=== PATIENT | male | born 1955 | race Caucasian/White ===

== ENCOUNTER 2018-06-20 08:11 | Outpatient (CLI) | payer MEDICAID ==
[2018-06-20 11:06] LABS: ALBUMIN 4.4 g/dL (3.2-5.5); ALBUMIN/GLOBULIN RATIO 1.6 (1.0-2.2); ALKALINE PHOSPHATASE 60 IU/L (42-121); ALT ALANINE AMINOTRANSFERASE 39 IU/L (10-60); AST ASPARTATE AMINOTRANSFERASE 33 IU/L (10-42); BILIRUBIN,TOTAL 0.6 mg/dL (0.2-1.0); BUN - BLOOD UREA NITROGEN 19 mg/dL (6-20); CALCIUM 9.1 mg/dL (8.5-10.3); CARBON DIOXIDE - CO2 28 mmol/L (21-32); CHLORIDE 104 mmol/L (101-111); CHOL/HDL RATIO 4.7 (<5.0); CHOLESTEROL 224 mg/dL; CREATININE 0.9 mg/dL (0.6-1.2); GFR - MDRD 85 (>89); GLUCOSE 97 mg/dL (70-100); HDL CHOLESTEROL 48 mg/dL; LDL CHOLESTEROL,CALCULATED 164 mg/dL; LDL/HDL RATIO 3.4 (<3.6); SODIUM 139 mmol/L (135-145); TOTAL PROTEIN 7.2 g/dL (6.7-8.2); VLDL CHOLESTEROL 12 mg/dL
== END 2018-06-20 08:12 | disposition home or self-care (01) ==
LOC: LAB.F 08:11
PROVIDERS: ATTEND Nurse Practitioner Family
DX: I10 Essential (primary) hypertension (principal); E78.5 Hyperlipidemia, unspecified
CPT/HCPCS: 36415; 80053; 80061; 83721

== ENCOUNTER 2019-04-02 22:32 | Emergency (ER) | payer MEDICAID ==
[2019-04-02] MEDS ORDERED: SODIUM CHLORIDE 0.9% 1,000 ML IV ONE (22:50)
[2019-04-02] MEDS ORDERED: ASPIRIN CHEW 81 MG TABLET PO STA (22:52)
[2019-04-02 22:57] LABS: BASOPHILS # (AUTO) 0.1 10^3/uL (0.0-0.1); BASOPHILS % (AUTO) 0.8 %; EOSINOPHILS # (AUTO) 0.2 10^3/uL (0.0-0.7); EOSINOPHILS % (AUTO) 3.8 %; HGB - HEMOGLOBIN 15.6 g/dL (14.0-18.0); LYMPHOCYTES # (AUTO) 2.7 10^3/uL (1.5-3.5); LYMPHOCYTES % (AUTO) 42.3 %; MEAN CORPUSCULAR HEMOGLOBIN 30.8 pg (27.0-31.0); MEAN CORPUSCULAR HGB CONC 35.8 g/dL (32.0-36.0); MEAN CORPUSCULAR VOLUME 86.2 fL (80.0-94.0); MEAN PLATELET VOLUME 10.3 fL (7.4-11.4); MONOCYTES # (AUTO) 0.7 10^3/uL (0.0-1.0); MONOCYTES % (AUTO) 10.7 %; NEUTROPHILS # (AUTO) 2.7 10^3/uL (1.5-6.6); NEUTROPHILS % (AUTO) 41.9 %; PLT - PLATELET COUNT 236 10^3/uL (130-450); RED BLOOD COUNT 5.06 10^6/uL (4.70-6.10); RED CELL DISTRIBUTION WIDTH 12.5 % (12.0-15.0); WHITE BLOOD COUNT 6.4 x10^3/uL (4.8-10.8)
[2019-04-02 23:15] LABS: BILIRUBIN,TOTAL 1.2 mg/dL (0.2-1.0); CALCIUM 9.2 mg/dL (8.5-10.3); CREATININE 0.9 mg/dL (0.6-1.2); MAGNESIUM 2.5 mg/dL (1.7-2.8)
[2019-04-02 23:16] LABS: ALBUMIN 4.4 g/dL (3.2-5.5); ALBUMIN/GLOBULIN RATIO 1.4 (1.0-2.2); TOTAL PROTEIN 7.5 g/dL (6.7-8.2)
[2019-04-02 23:22] LABS: TROPONIN I < 0.04 ng/mL (<0.49)
[2019-04-03] MEDS ORDERED: cloNIDine 0.1 MG TABLET PO STA (00:08)
--- NOTE | 2019-04-03 00:09 | ED Physician Documentation ---
PD HPI SYNCOPE - Stated complaint Stated Complaint: LOW BLOOD PRESSURE - Chief complaint Chief Complaint: Neuro - History obtained from History obtained from: Patient - History of Present Illness Witnessed: Witnessed (Pt c/o of low BP at home. He was feeling lightheaded and at about 7pm he stopped to take blood pressure which he says was low at 90/67. He says his BP is normally in the 130s systolic. Pt denies STAFF PSYCHOLOGIST or SOB. Pt says he tends to have a problem with heat. He says he is not sure about drinking enough today and he is sure he hasn't eaten enough.) Timing - onset: How many hours ago (1-2), Today Duration: Minutes Preceding symptoms: Diaphoresis, Light headed, Generalized weakness. 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 He states he had been drinking some water but maybe not enough and had not really eaten through the day. He felt abruptly lightheaded this evening and then took his blood pressure and it was low. Came here for evaluation. On arrival here his blood pressure is actually quite elevated.). No: Headache, Vision changes, Chest pain Contributing factors: Decreased PO intake, Just stood up. No: Recent med change, Noxious stimulae Injury occurred: No: Fell, Head injury, Neck injury Similar symptoms before: Has not had sx before Recently seen: Not recently seen Review of Systems Constitutional: denies: Fever, Chills, Myalgias Nose: denies: Rhinorrhea / runny nose, Congestion Throat: denies: Sore throat Cardiac: denies: Chest pain / pressure, Palpitations, Pedal edema Respiratory: denies: Dyspnea GI: denies: Abdominal Pain, Nausea, Vomiting, Diarrhea, Bloody / black stool : denies: Dysuria, Frequency Neurologic: reports: Generalized weakness, Near syncope. denies: Syncope, Altered mental status, Headache PD PAST MEDICAL HISTORY - Past Medical History Cardiovascular: Hypertension, Angina, Arrhythmia Respiratory: None Endocrine/Autoimmune: None GI: None : None HEENT: None Psych: Claustrophobia Musculoskeletal: None Derm: None - Past Surgical History Past Surgical History: No - Present Medications Home Medications: Ambulatory Orders Medication Instructions Recorded Confirmed No Known Home Medications 09/14/15 09/14/15 - Allergies Allergies/Adverse Reactions: Allergies Allergy/AdvReac Type Severity Reaction Status Date / Time No Known Drug Allergies Allergy Verified 04/02/19 22:48 - Social History Does the pt smoke?: No Smoking Status: Never smoker Does the pt drink ETOH?: Yes Does the pt have substance abuse?: No - Immunizations Immunizations are current?: Yes PD ED PE NORMAL - Vitals Vital signs reviewed: Yes (hypertensive here; he says usual BP is about 135 systolic. Noted low at [facility]) - General General: Alert and oriented X 3, No acute distress, Well developed/nourished - HEENT HEENT: Moist mucous membranes, Pharynx benign - Neck Neck: Supple, no meningeal sign, No adenopathy - Cardiac Cardiac: RRR, No murmur, No rub - Respiratory Respiratory: Clear bilaterally - Abdomen Abdomen: Soft, Non tender - Back Back: No CVA TTP - Derm Derm: Normal color, Warm and dry - Extremities Extremities: No deformity, No tenderness to palpate, Normal ROM s pain, No edema, No calf tenderness / cord - Neuro Neuro: Alert and oriented X 3, No motor deficit, Normal speech Eye Opening: Spontaneous Motor: Obeys Commands Verbal: Oriented GCS Score: 15 - Psych Psych: Normal mood, Normal affect Results - Vitals Vitals: Vital Signs - 24 hr 04/02/19 04/02/19 04/02/19 22:37 22:54 22:58 Temperature 36 C L Heart Rate 61 58 L Respiratory 16 20 Rate Blood Pressure 190/122 H 162/122 H Blood Pressure 162/122 H [Left] O2 Saturation 98 04/02/19 04/02/19 04/03/19 23:05 23:26 01:02 Temperature Heart Rate 58 L 68 Respiratory 21 Rate Blood Pressure 160/107 H 200/118 H 155/97 H Blood Pressure [Left] O2 Saturation 96 Oxygen O2 Source Room air - EKG (time done) 22:39 Rate: Rate (enter#) (53) Rhythm: Sinus bradycardia [place]: Normal Intervals: Normal [place] QRS: Normal Ischemia: Normal ST segments. No: ST elevation c/w ischemia, ST depression Computer interpretation: Disagree with computer - Labs Labs: Laboratory Tests 04/02/19 04/02/19 04/02/19 22:45 22:45 22:45 WBC 6.4 RBC 5.06 Hgb 15.6 Hct 43.6 MCV 86.2 MCH 30.8 MCHC 35.8 RDW 12.5 Plt Count 236 MPV 10.3 Neut # (Auto) 2.7 Lymph # (Auto) 2.7 [place] # (Auto) 0.7 Eos # (Auto) 0.2 Baso # (Auto) 0.1 Absolute Nucleated RBC 0.00 Nucleated RBC % 0.0 Sodium 139 Potassium 3.6 Chloride 104 Carbon Dioxide 22 Anion Gap 13.0 BUN 20 Creatinine 0.9 Estimated GFR (MDRD) 85 L Glucose 89 Calcium 9.2 Magnesium 2.5 Total Bilirubin 1.2 H AST 37 ALT 46 Alkaline Phosphatase 57 Troponin I < 0.04 Troponin I High Sens 8.7 B-Natriuretic Peptide Total Protein 7.5 Albumin 4.4 Globulin 3.1 Albumin/Globulin Ratio 1.4 Lipase 27 04/02/19 22:45 WBC RBC Hgb Hct MCV MCH MCHC RDW Plt Count MPV Neut # (Auto) Lymph # (Auto) [place] # (Auto) Eos # (Auto) Baso # (Auto) Absolute Nucleated RBC Nucleated RBC % Sodium Potassium Chloride Carbon Dioxide Anion Gap BUN Creatinine Estimated GFR (MDRD) Glucose Calcium Magnesium Total Bilirubin AST ALT Alkaline Phosphatase Troponin I Troponin I High Sens B-Natriuretic Peptide 37 Total Protein Albumin Globulin Albumin/Globulin Ratio Lipase PD MEDICAL DECISION MAKING - ED course Complexity details: reviewed results, re-evaluated patient (Still feeling okay. His blood pressure remains consistently elevated. He does not have high blood pressure in the past. He is concerned about the degree of elevation though. We will give a single dose of clonidine here but I would not start any new medicines without more of a trend. This allowed his blood pressure to come down to reasonable level of 155/62. Heart rate remains stable. He is feeling well.), considered differential (Presume some under hydration and transient drop in blood pressure with standing up. His blood pressure here is elevated and that may be reflexively overcompensating by the body. Alternatively he may have some lightheaded feeling in his home blood pressure cuff misread but that seems less likely as it had seemed reliable to him in the past. We will look for signs of heart attack though he did not have any chest pain. We will look for electrolytes and blood sugar. Meanwhile we will give some IV fluids to rehydrate and allow him oral fluids and food.), d/w patient Departure - Departure Disposition: 01 Home, Self Care Clinical Impression: Light-headed feeling, Transient hypotension Hypertension Qualifiers: Hypertension type: unspecified Qualified Code(s): I10 - Essential (primary) hypertension Condition: Stable Record reviewed to determine appropriate education?: Yes Comments: Stay well-hydrated. Regular diet. Rest with light activity tomorrow. See how your blood pressure does over the next couple of days. Return if persistent symptoms or other problems. Your blood pressure was high here in the ER over several readings. This may have been a transient process in response you are not feeling well. It would not necessarily mean they would want to be on can continue blood pressure medicine and most likely not since he said your blood pressures typically good. I would just see how it is over the next few days. Discharge Date/Time: 04/03/19 01:30
[2019-04-03 01:03] VITALS: BP 155/97
== END 2019-04-03 01:30 | disposition home or self-care (01) ==
LOC: ED 22:32
DX: I95.89 Other hypotension (principal); I10 Essential (primary) hypertension
CPT/HCPCS: 36415; 80053; 83690; 83735; 83880; 84484; 85025; 96360; 99284; A9270

== ENCOUNTER 2020-09-26 12:12 | Outpatient (CLI) | payer MEDICAID | END 2020-09-26 12:13 | disposition left against medical advice (07) | LOC: EMS 12:12 | PROVIDERS: ATTEND Surgery | DX: F41.0 Panic disorder [episodic paroxysmal anxiety] (principal) ==

== ENCOUNTER 2021-02-01 08:00 | Outpatient (CLI) | payer MEDICARE, MEDICAID ==
[2021-02-01 15:08] LABS: BASOPHILS % (AUTO) 0.4 %; EOSINOPHILS # (AUTO) 0.2 10^3/uL (0.0-0.7); EOSINOPHILS % (AUTO) 3.4 %; HCT - HEMATOCRIT 46.1 % (42.0-52.0); HGB - HEMOGLOBIN 15.7 g/dL (14.0-18.0); LYMPHOCYTES # (AUTO) 2.6 10^3/uL (1.5-3.5); LYMPHOCYTES % (AUTO) 36.4 %; MEAN CORPUSCULAR HEMOGLOBIN 29.7 pg (27.0-31.0); MEAN CORPUSCULAR HGB CONC 34.1 g/dL (32.0-36.0); MEAN CORPUSCULAR VOLUME 87.1 fL (80.0-94.0); MEAN PLATELET VOLUME 10.8 fL (7.4-11.4); MONOCYTES # (AUTO) 0.6 10^3/uL (0.0-1.0); MONOCYTES % (AUTO) 8.8 %; NEUTROPHILS # (AUTO) 3.6 10^3/uL (1.5-6.6); NEUTROPHILS % (AUTO) 50.7 %; PLT - PLATELET COUNT 254 10^3/uL (130-450); RED BLOOD COUNT 5.29 10^6/uL (4.70-6.10); RED CELL DISTRIBUTION WIDTH 12.7 % (12.0-15.0); WHITE BLOOD COUNT 7.1 x10^3/uL (4.8-10.8)
[2021-02-01 15:21] LABS: ALBUMIN 4.6 g/dL (3.2-5.5); ALBUMIN/GLOBULIN RATIO 1.6 (1.0-2.2); BILIRUBIN,TOTAL 1.6 mg/dL (0.2-1.0); CALCIUM 9.7 mg/dL (8.5-10.3); POTASSIUM 3.9 mmol/L (3.5-5.0); TOTAL PROTEIN 7.5 g/dL (6.7-8.2)
== END 2021-02-01 23:59 | disposition home or self-care (01) ==
LOC: LAB.S 08:00
PROVIDERS: ATTEND Emergency Medicine
DX: I10 Essential (primary) hypertension (principal)
CPT/HCPCS: 36415; 80053; 81001; 85025; 87086

== ENCOUNTER 2021-03-07 10:46 | Outpatient (CLI) | payer MEDICARE, MEDICAID ==
--- NOTE | 2021-03-07 12:23 | XRAY Report ---
PROCEDURE: Knee 4 View LT INDICATIONS: LEFT KNEE PX TECHNIQUE: 4 views of the left knee(s) were acquired. COMPARISON: None. FINDINGS: Bones: No fractures or dislocations. No suspicious bony lesions. Moderate tricompartmental osteoar thritis is seen with joint space narrowing, subchondral sclerosis and marginal osteophyte formation. Soft tissues: Small suprapatellar joint effusion. No suspicious soft tissue calcifications. IMPRESSION: Moderate tricompartmental osteoarthritis and small joint effusion. No fracture or disloc ation. Reviewed by: Modesto Zheng MD on 03/07/2021 12:22 PM PDT Approved by: Modesto Zheng MD on 03/07/2021 12:22 PM PDT Station ID: [id number]
== END 2021-03-07 10:47 | disposition home or self-care (01) ==
LOC: DI.S 10:46
PROVIDERS: ATTEND Physician Assistant
DX: M17.12 Unilateral primary osteoarthritis, left knee (principal)

== ENCOUNTER 2021-10-29 07:00 | Outpatient (CLI) | payer MEDICARE, MEDICAID ==
[2021-10-29 18:01] LABS: BASOPHILS # (AUTO) 0.1 10^3/uL (0.0-0.1); EOSINOPHILS # (AUTO) 0.2 10^3/uL (0.0-0.7); EOSINOPHILS % (AUTO) 2.4 %; HCT - HEMATOCRIT 43.1 % (42.0-52.0); HGB - HEMOGLOBIN 15.1 g/dL (14.0-18.0); LYMPHOCYTES # (AUTO) 2.5 10^3/uL (1.5-3.5); LYMPHOCYTES % (AUTO) 40.4 %; MEAN CORPUSCULAR HEMOGLOBIN 30.9 pg (27.0-31.0); MEAN CORPUSCULAR VOLUME 88.1 fL (80.0-94.0); MONOCYTES # (AUTO) 0.7 10^3/uL (0.0-1.0); MONOCYTES % (AUTO) 11.2 %; NEUTROPHILS # (AUTO) 2.8 10^3/uL (1.5-6.6); NEUTROPHILS % (AUTO) 44.8 %; PLT - PLATELET COUNT 251 10^3/uL (130-450); RED BLOOD COUNT 4.89 10^6/uL (4.70-6.10); RED CELL DISTRIBUTION WIDTH 12.8 % (12.0-15.0); WHITE BLOOD COUNT 6.2 x10^3/uL (4.8-10.8)
[2021-10-29 18:22] LABS: ALBUMIN 4.1 g/dL (3.2-5.5); ALBUMIN/GLOBULIN RATIO 1.5 (1.0-2.2); ALKALINE PHOSPHATASE 53 IU/L (42-121); ALT ALANINE AMINOTRANSFERASE 34 IU/L (10-60); AST ASPARTATE AMINOTRANSFERASE 32 IU/L (10-42); BILIRUBIN,TOTAL 1.1 mg/dL (0.2-1.0); BUN - BLOOD UREA NITROGEN 18 mg/dL (6-20); CALCIUM 9.5 mg/dL (8.5-10.3); CARBON DIOXIDE - CO2 25 mmol/L (21-32); CHLORIDE 103 mmol/L (101-111); CHOL/HDL RATIO 6.1 (<5.0); CHOLESTEROL 238 mg/dL; CREATININE 1.2 mg/dL (0.6-1.2); GFR - MDRD 61 (>89); GLUCOSE 73 mg/dL (70-100); HDL CHOLESTEROL 39 mg/dL; LDL CHOLESTEROL,CALCULATED 179 mg/dL; LDL/HDL RATIO 4.6 (<3.6); POTASSIUM 4.1 mmol/L (3.5-5.0); SODIUM 136 mmol/L (135-145); TOTAL PROTEIN 6.8 g/dL (6.7-8.2); TRIGLYCERIDES 101 mg/dL; VLDL CHOLESTEROL 20 mg/dL
[2021-10-29 18:33] LABS: THYROID STIMULATING HORMONE 2.3 uIU/mL (0.34-5.60)
[2021-10-31 09:55] LABS: HEPATITIS C ANTIBODY NON-REACTIVE (NON-REACTIVE)
== END 2021-10-29 23:59 | disposition home or self-care (01) ==
LOC: LAB.S 07:00
PROVIDERS: ATTEND Registered Nurse
DX: Z00.00 Encounter for general adult medical examination without abnormal findings (principal); I10 Essential (primary) hypertension; E78.5 Hyperlipidemia, unspecified; Z13.220 Encounter for screening for lipoid disorders; R53.83 Other fatigue; Z13.0 Encounter for screening for diseases of the blood and blood-forming organs and certain disorders involving the immune mechanism; R97.20 Elevated prostate specific antigen [PSA]
CPT/HCPCS: 36415; 80050; 80053; 80061; 82306; 83721; 84153; 84403; 84443; 85025; 86803